=== PATIENT | female | born 1950 | race American Indian/Alaskan Native ===

== ENCOUNTER 2017-07-27 16:39 | Observation (INO) | payer MEDICARE, MEDICAID ==
--- NOTE | 2017-07-27 16:57 | EDM.PDOCBH ---
ED HPI GENERAL MEDICAL PROBLEM - General Chief Complaint: Neurological Problem Stated Complaint: MEDICAL Time Seen by Provider: 07/27/17 16:55 Source of Information: Reports: Patient History Limitations: Reports: No Limitations, Other (pt is alert nd able to give a good history by the time she arrived. ) - History of Present Illness Onset: Gradual Duration: Day(s): Location: Reports: Chest - Related Data Allergies Allergy/AdvReac Type Severity Reaction Status Date / Time No Known Allergies Allergy Verified 07/27/17 16:46 Home Meds: Home Meds Aspirin 07/27/17 [History] Calcium Carb/Vitamin D3/Vit K2 [Calcium Plus Menaq7 Adult Tab] 07/27/17 [ History] FLUoxetine [PROzac] 07/27/17 [History] Ferrous Sulfate [Ferosul] 07/27/17 [History] Fludrocortisone [Florinef] 07/27/17 [History] Gabapentin [Neurontin] 07/27/17 [History] Insulin Detemir [Levemir] 07/27/17 [History] Insulin Regular, Human [NovoLIN R] 07/27/17 [History] Levothyroxine 07/27/17 [History] Lidocaine 5% [Lidoderm 5%] 07/27/17 [History] Magnesium Oxide [Magnesium] 07/27/17 [History] Methocarbamol 07/27/17 [History] Multivitamin [Multi-Vitamin Daily] 07/27/17 [History] Potassium Chloride 07/27/17 [History] Vitamin D3/Vitamin K2 [D3 + K2 Dots 1,000 Unit] 07/27/17 [History] prednisoLONE [Millipred] 07/27/17 [History] Past Medical History Neurological History: Reports: Seizure Endocrine/Metabolic History: Reports: Diabetes, Type II - Past Surgical History GI Surgical History: Reports: Cholecystectomy Female Surgical History: Reports: Oophorectomy ED ROS GENERAL - Review of Systems Review Of Systems: See Below Constitutional: Reports: No Symptoms HEENT: Reports: No Symptoms Respiratory: Reports: No Symptoms Cardiovascular: Reports: No Symptoms Endocrine: Reports: No Symptoms GI/Abdominal: Reports: No Symptoms : Reports: No Symptoms Musculoskeletal: Reports: No Symptoms Skin: Reports: No Symptoms Neurological: Reports: Other (pt hd a very extended seizure. ) Psychiatric: Reports: Anxiety Immunologic: Reports: No Symptoms ED EXAM, BEHAVIORAL HEALTH - Physical Exam Exam: See Below Text/Narrative:: pt is alert and able to give a ood history. She had a bs of 40 earlier nd she had a seizure. There is some concern that she may be one that leaves the assisted living and could get into some drugs. Exam Limited By: No Limitations General Appearance: Alert, No Apparent Distress, Other (pupils are equal and reactive. ) Ears: Normal TMs Nose: Normal Inspection Throat/Mouth: Normal Inspection Head: Atraumatic Neck: Normal Inspection Respiratory/Chest: No Respiratory Distress Cardiovascular: Regular Rate, Rhythm GI/Abdominal: Soft, Non-Tender (Female) Exam: Deferred Rectal (Female) Exam: Deferred Back Exam: Normal Inspection Extremities: Normal Inspection Neurological: Alert, Normal Cognition, Oriented x 3 Psychiatric: Alert COURSE, BEHAVIORAL HEALTH COMP - Course Vital Signs: Last Vital Signs Temp 34.7 C L 07/27/17 16:58 Pulse 83 07/27/17 16:58 Resp 11 L 07/27/17 16:58 BP 105/63 07/27/17 16:58 Pulse Ox 96 07/27/17 16:58 Orders, Labs, Meds: Active Orders 24 hr Category Date Time Status Head wo Cont [CT] Stat Exams 07/27/17 18:04 Ordered DRUG SCREEN, URINE [URCHEM] Stat Lab 07/27/17 16:54 Ordered GLUCOSE POC LAB TO COLLECT [POC] Stat Lab 07/27/17 17:47 Ordered UA W/MICROSCOPIC [URIN] Urgent Lab 07/27/17 16:47 Ordered Dextrose 5%-0.45% NaCl [Dextrose 5%-1/2 NS] 1,000 ml Med 07/27/17 18:00 Ordered IV ASDIRECTED Sodium Chloride 0.9% [Normal Saline] 1,000 ml Med 07/27/17 17:00 Active IV ASDIRECTED Medication Orders Sodium Chloride (Normal Saline) 1,000 mls @ 500 mls/hr IV ASDIRECTED [facility] Dextrose/Sodium Chloride (Dextrose 5%-1/2 Ns) 1,000 mls @ 200 mls/hr IV ASDIRECTED [facility] Laboratory Tests 07/27/17 07/27/17 Range/Units 17:00 17:00 WBC 5.9 (4.5-11.0) K/uL RBC 4.25 (3.30-5.50) M/uL Hgb 12.4 (12.0-15.0) g/dL Hct 36.0 (36.0-48.0) % MCV 85 (80-98) fL MCH 29 (27-31) pg MCHC 34 (32-36) % Plt Count 241 (150-400) K/uL Neut % (Auto) 58 (36-66) % Lymph % (Auto) 26 (24-44) % Clark % (Auto) 13 H (2-6) % Eos % (Auto) 2 (2-4) % Baso % (Auto) 0 (0-1) % Sodium 140 (140-148) mmol/L Potassium 3.5 L (3.6-5.2) mmol/L Chloride 101 (100-108) mmol/L Carbon Dioxide 29 (21-32) mmol/L Anion Gap 13.5 (5.0-14.0) mmol/L BUN 13 (7-18) mg/dL Creatinine 0.6 (0.6-1.0) mg/dL Est Cr Clr Drug Dosing 72.29 mL/min Estimated GFR (MDRD) > 60 (>60) Glucose 86 (74-106) mg/dL Calcium 8.6 (8.5-10.1) mg/dL Total Bilirubin 0.2 (0.2-1.0) mg/dL AST 65 H (15-37) U/L ALT 83 H (12-78) U/L Alkaline Phosphatase 78 (46-116) U/L Total Protein 6.4 (6.4-8.2) g/dL Albumin 3.1 L (3.4-5.0) g/dL Globulin 3.3 (2.3-3.5) g/dL Albumin/Globulin Ratio 0.9 L (1.2-2.2) Medications Generic Name Dose Route Start Last Admin Trade Name Freq PRN Reason Stop Dose Admin Sodium Chloride 1,000 mls @ 500 mls/hr 07/27/17 17:00 Normal Saline IV ASDIRECTED AMY Dextrose/Sodium Chloride 1,000 mls @ 200 mls/hr 07/27/17 18:00 Dextrose 5%-1/2 Ns IV ASDIRECTED AMY Medical Clearance: 07/27/17 18:01 bs dropped again to 60. She is having supper. Will start d5/1/2 normal. 07/27/17 18:05 pt was put on tramodol about 4-5 days ago and could have lowered seizure threshold. Departure - Departure Time of Disposition: 18:06 Disposition: Admitted As Inpatient 68 Condition: Fair Clinical Impression: Hypoglycemia, Diabetes, Dehydration, Seizure - Discharge Information Referrals: Hilaria Denis MD [Primary Care Provider] - Forms: ED Department Discharge Care Plan Goals: admit to [facility] - My Orders Last 24 Hours: My Active Orders 07/27/17 16:47 UA W/MICROSCOPIC [URIN] Urgent 07/27/17 16:54 DRUG SCREEN, URINE [URCHEM] Stat 07/27/17 17:00 Sodium Chloride 0.9% [Normal Saline] 1,000 ml IV ASDIRECTED 07/27/17 17:47 GLUCOSE POC LAB TO COLLECT [POC] Stat 07/27/17 18:00 Dextrose 5%-0.45% NaCl [Dextrose 5%-1/2 NS] 1,000 ml IV ASDIRECTED 07/27/17 18:04 Head wo Cont [CT] Stat - Assessment/Plan Last 24 Hours: My Active Orders 07/27/17 16:47 UA W/MICROSCOPIC [URIN] Urgent 07/27/17 16:54 DRUG SCREEN, URINE [URCHEM] Stat 07/27/17 17:00 Sodium Chloride 0.9% [Normal Saline] 1,000 ml IV ASDIRECTED 07/27/17 17:47 GLUCOSE POC LAB TO COLLECT [POC] Stat 07/27/17 18:00 Dextrose 5%-0.45% NaCl [Dextrose 5%-1/2 NS] 1,000 ml IV ASDIRECTED 07/27/17 18:04 Head wo Cont [CT] Stat
[2017-07-27] MEDS ORDERED: Sodium Chloride 0.9% 1,000 ML IV SCH (17:00)
[2017-07-27] MEDS ORDERED: Dextrose 5%-0.45% NaCl 1,000 ML IV SCH (18:00)
[2017-07-27] MEDS ORDERED: Ondansetron 4 MG Tab.DIS PO PRN (19:48)
[2017-07-27] MEDS ORDERED: Ondansetron 4 MG/2 ML SDV IV PRN (19:48)
[2017-07-27] MEDS ORDERED: LORazepam 2 MG/ML MDV IV PRN (19:48)
[2017-07-27] MEDS ORDERED: Docusate Sodium 100 MG Cap PO PRN (19:48)
[2017-07-27] MEDS ORDERED: Morphine 2 MG/ML Syringe IVPUSH PRN (19:48)
[2017-07-27] MEDS ORDERED: Albuterol 0.083% 2.5 MG/3 ML Neb Soln NEB PRN (19:48)
[2017-07-27] MEDS: Potassium Chloride 20 MEQ Tab.ER PO SCH (20:49)
[2017-07-27] MEDS: Gabapentin 400 MG Cap PO SCH (20:49)
[2017-07-27] MEDS: Acetaminophen 325 MG Tab PO PRN (20:49)
[2017-07-27] MEDS: oxyCODONE 5 MG Tab PO PRN (20:50)
[2017-07-27] MEDS: Zolpidem 5 MG Tab PO PRN (20:50)
[2017-07-27] MEDS ORDERED: Insulin Detemir 100 Units/ML 3 ML Pen SUBCUT SCH (21:00)
[2017-07-27] MEDS: Methocarbamol 500 MG Tab PO SCH (21:05)
[2017-07-27] MEDS: Insulin Aspart 100 Units/ML 3 ML Pen SUBCUT SCH (22:24)
[2017-07-27] MEDS: Sodium Chloride 0.9% 1,000 ML IV SCH (23:32)
--- NOTE | 2017-07-28 00:22 | PCM.HP ---
H&P History of Present Illness - General Date of Service: 07/27/17 Admit Problem/Dx: Admission Diagnosis/Problem Admission Diagnosis/Problem Hypoglycemia associated with type 2 diabetes mellitus Source of Information: Patient, EMS Notes Reviewed, Provider History Limitations: Reports: No Limitations - History of Present Illness Initial Comments - Free Text/Narative: Hypoglycemia: This is a 67-year-old female presents emergency room via EMS from her assisted living home. [facility] staff report Donna as having a seizure lasting 15 minutes. Blood sugar was taken and noted to be at 40. EMS arrived, administered D50 and IV fluids were established. She was evaluated in the ER again had lower blood sugars in the 60s given food IV fluids. Now blood sugar in the 80s. Due to seizures and low blood sugars. Will admit overnight for observation. Patient is in agreement with plan of care. Recent start of tramadol 50 mg every 4-6 hours for the past 6 days. Onset of Symptoms: Reports: Sudden Duration of Symptoms: Reports: Hour(s): Location: Reports: Generalized Quality: Reports: Other (She seizure lasting 15 minutes. Witnessed.) Severity: Moderate Improves with: Reports: Other (Blood sugar at 40. Given D50 and IV fluids started) Worsens with: Reports: None Context: Reports: Other (Recent start of tramadol for pain.) Associated Symptoms: Reports: Seizure, Weakness - Related Data Allergies/Adverse Reactions: Allergies Allergy/AdvReac Type Severity Reaction Status Date / Time No Known Allergies Allergy Verified 07/27/17 16:46 Home Medications: Home Meds Aspirin 1 tab PO DAILY 07/27/17 [History] Calcium Carb/Vitamin D3/Vit K2 [Calcium Plus Menaq7 Adult Tab] 1 tab PO BID 09/10 [History] FLUoxetine [PROzac] 1 tab PO DAILY 07/27/17 [History] Ferrous Sulfate [Ferosul] 1 tab PO DAILY 07/27/17 [History] Fludrocortisone [Florinef] 2 tab PO DAILY 07/27/17 [History] Gabapentin [Neurontin] 2 tab PO TID 07/27/17 [History] Insulin Aspart [Novolog Flexpen] 25 units SQ TID 07/27/17 [History] Insulin Detemir [Levemir] 34 unit SQ BID 07/27/17 [History] Levothyroxine 1 tab PO DAILY 07/27/17 [History] Magnesium Oxide [Magnesium] 1 tab PO DAILY 07/27/17 [History] Methocarbamol 1 tab PO QID 07/27/17 [History] Multivitamin [Multi-Vitamin Daily] 1 tab PO DAILY 07/27/17 [History] Potassium Chloride 1 tab PO DAILY 07/27/17 [History] Vitamin D3/Vitamin K2 [D3 + K2 Dots 1,000 Unit] 1,000 units PO DAILY 07/27/17 [ History] prednisoLONE [Millipred] 1.5 tab PO DAILY 07/27/17 [History] Past Medical History HEENT History: Reports: Impaired Vision Respiratory History: Reports: Intubation, Previous, Pneumonia, Recurrent, SOB Gastrointestinal History: Reports: Hepatitis Other Gastrointestinal History: Hepatitis c in 1973 Genitourinary History: Reports: Diabetic Nephropathy, Urinary Incontinence 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 pt reports skin sensitivity - Infectious Disease History Infectious Disease History: Reports: Hepatitis C, MRSA - Past Surgical History HEENT Surgical History: Reports: LASIK Respiratory Surgical History: Reports: None GI Surgical History: Reports: Cholecystectomy, Colonoscopy Female Surgical History: Reports: Oophorectomy Endocrine Surgical History: Reports: None Neurological Surgical History: Reports: None Musculoskeletal Surgical History: Reports: None Dermatological Surgical History: Reports: None Social & Family History - Tobacco Use Smoking Status *Q: Never Smoker Second Hand Smoke Exposure: Yes - Caffeine Use Caffeine Use: Reports: Coffee, Soda Caffeine Use Comment: 2-3 cups/daily - Recreational Drug Use Recreational Drug Use: No - Living Situation & Occupation Living situation: Reports: Single Occupation: Disabled (Has been living at [place], [place]. For the past 3 months. Prior to that lived with son, Karlos Delarosa in [place], [place].) H&P Review of Systems - Review of Systems: Review Of Systems: Unable To Obtain General: Reports: Weakness HEENT: Reports: No Symptoms Pulmonary: Reports: No Symptoms Cardiovascular: Reports: No Symptoms Gastrointestinal: Reports: No Symptoms Genitourinary: Reports: No Symptoms Musculoskeletal: Reports: No Symptoms Skin: Reports: No Symptoms Psychiatric: Reports: No Symptoms Neurological: Reports: Other (Witnessed seizure at the assisted living home. None since being in the emergency room) Hematologic/Lymphatic: Reports: No Symptoms Immunologic: Reports: No Symptoms Exam - Exam Exam: See Below - Vital Signs Vital Signs: Last Vital Signs Temp 34.7 C L 07/27/17 16:58 Pulse 83 07/27/17 18:55 Resp 12 07/27/17 18:55 BP 139/92 H 07/27/17 18:55 Pulse Ox 100 07/27/17 20:20 Weight: 50.303 kg - Exam General: Alert, Oriented, Cooperative, Other (Thin, appears older than stated age) HEENT: PERRLA, Hearing Intact, Mucosa Moist & [place], Nares Patent, Normal Nasal Septum, Posterior Pharynx Clear, Conjunctiva Clear, EOMI, EACs Clear, TMs Clear Neck: Supple, Trachea Midline, 2 Lungs: Clear to Auscultation, Normal Respiratory Effort Cardiovascular: Regular Rate, Regular Rhythm GI/Abdominal Exam: Normal Bowel Sounds, Soft, Non-Tender, No Organomegaly, No Distention, No Abnormal Bruit, No Mass, Pelvis Stable (Female) Exam: Deferred Rectal (Female) Exam: Deferred Back Exam: Normal Inspection Extremities: Normal Inspection, Normal Range of Motion, Non-Tender, No Pedal Edema, Normal Capillary Refill Skin: Warm, Dry, Intact Neurological: Cranial Nerves Intact, Reflexes Equal Bilateral, Strength Equal Bilateral, Normal Speech, Normal Tone Neuro Extensive - Mental Status: Alert, Oriented x3, Normal Mood/Affect, Normal Cognition Neuro Extensive - Motor, Sensory, Reflexes: CN II-XII Intact, Normal Reflexes Psychiatric: Alert, Normal Affect, Normal Mood - Patient Data Result Diagrams: 07/27/17 17:00 07/27/17 17:00 *Q Meaningful Use (ADM) - VTE *Q VTE Criteria *Q: - Stroke *Q Stroke Criteria *Q: - AMI *Q AMI Criteria *Q: - Problem List (1) Hypoglycemia SNOMED Code(s): 086406416 ICD Code: E16.2 - HYPOGLYCEMIA, UNSPECIFIED Status: Acute Priority: Medium Current Visit: Yes (2) Seizure SNOMED Code(s): 45784182 ICD Code: R56.9 - UNSPECIFIED CONVULSIONS Status: Acute Priority: Medium Current Visit: Yes (3) Diabetes SNOMED Code(s): 50732187 ICD Code: E11.9 - TYPE 2 DIABETES MELLITUS WITHOUT COMPLICATIONS Status: Acute Current Visit: Yes Qualifiers: Diabetes mellitus type: type 2 Diabetes mellitus complication status: with hypoglycemia Diabetes mellitus complication detail: without coma Diabetes mellitus roasterman insulin use: with roasterman use Qualified Code(s): E11.649 - Type 2 diabetes mellitus with hypoglycemia without coma; Z79.4 - roasterman ( current) use of insulin; Z79.4 - roasterman (current) use of insulin; Z79.4 - custodial (current) use of insulin; Z79.4 - roasterman (current) use of insulin Problem List Initiated/Reviewed/Updated: Yes Orders Last 24hrs: Active Orders 24 hr Category Date Time Status Patient Status [ADT] Routine ADT 07/27/17 19:48 Active Diabetes Education [RC] Click to Edit Care 07/27/17 19:48 Active Intake and Output [RC] QSHIFT Care 07/27/17 19:48 Active Neuro Check [RC] Q4HR Care 07/27/17 19:48 Active Notify Provider Vital Signs [RC] ASDIRECTED Care 07/27/17 19:48 Active Oxygen Therapy [RC] PRN Care 07/27/17 19:48 Active Pulse Oximetry [RC] PRN Care 07/27/17 19:48 Active RT Aerosol Therapy [RC] ASDIRECTED Care 07/27/17 19:48 Active Up With Assistance [RC] ASDIRECTED Care 07/27/17 19:48 Active VTE/DVT Education [RC] Per Unit Routine Care 07/27/17 19:48 Active Vital Signs [RC] Q4H Care 07/27/17 19:48 Active Consistent Carbohydrate Diet [DIET] Diet 07/27/17 Dinner Active BASIC METABOLIC PANEL,BMP [CHEM] AM Lab 07/28/17 05:11 Ordered CBC WITH AUTO DIFF [HEME] AM Lab 07/28/17 05:11 Ordered Acetaminophen [Tylenol] Med 07/27/17 19:48 Active 650 mg PO Q4H PRN Albuterol [Proventil Neb Soln] Med 07/27/17 19:48 Active 2.5 mg NEB Q4H PRN Docusate Sodium [Colace] Med 07/27/17 19:48 Active 100 mg PO BID PRN FLUoxetine [PROzac] Med 07/28/17 09:00 Active 40 mg PO DAILY Fludrocortisone [Florinef] Med 07/28/17 09:00 Active 0.2 mg PO DAILY Gabapentin [Neurontin] Med 07/27/17 21:00 Active 800 mg PO TID Insulin Aspart [NovoLOG] Med 07/27/17 22:00 Active See Protocol SUBCUT QIDACANDBED Insulin Detemir [Levemir] Med 07/27/17 21:00 Active 34 unit SUBCUT BID LORazepam [Ativan] Med 07/27/17 19:48 Active 1 mg IV Q6H PRN Levothyroxine Med 07/28/17 09:00 Active 25 mcg PO DAILY Magnesium Oxide Med 07/28/17 09:00 Active 400 mg PO DAILY Methocarbamol [Robaxin] Med 07/27/17 22:00 Active 500 mg PO QID Morphine Med 07/27/17 19:48 Active 2 mg IVPUSH Q2H PRN Ondansetron [Zofran ODT] Med 07/27/17 19:48 Active 4 mg PO Q6H PRN Ondansetron [Zofran] Med 07/27/17 19:48 Active 4 mg IV Q4H PRN Potassium Chloride [Klor-Con M20] Med 07/27/17 19:48 Active 20 meq PO DAILY Sodium Chloride 0.9% [Normal Saline] 1,000 ml Med 07/27/17 19:48 Active IV ASDIRECTED Zolpidem [Ambien] Med 07/27/17 19:48 Active 5 mg PO BEDTIME PRN oxyCODONE Med 07/27/17 19:48 Active 5 mg PO Q4H PRN predniSONE Med 07/28/17 09:00 Active 7.5 mg PO DAILY Seizure Precautions [OM.PC] Routine Oth 07/27/17 19:48 Ordered Sequential Compression Device [OM.PC] Per Unit Routine Oth 07/27/17 19:48 Ordered Resuscitation Status Routine Resus Stat 07/27/17 19:06 Ordered Medication Orders Acetaminophen (Tylenol) 650 mg PO Q4H PRN PRN Reason: Pain (Mild 1-3)/fever Last Admin: 07/27/17 20:49 Dose: 650 mg Albuterol (Proventil Neb Soln) 2.5 mg NEB Q4H PRN PRN Reason: Shortness Of Breath/wheezing Docusate Sodium (Colace) 100 mg PO BID PRN PRN Reason: Constipation Fludrocortisone Acetate (Florinef) 0.2 mg PO DAILY [facility] Fluoxetine HCl (Prozac) 40 mg PO DAILY [facility] Gabapentin (Neurontin) 800 mg PO TID [facility] Last Admin: 07/27/17 20:49 Dose: 800 mg Dextrose/Sodium Chloride (Dextrose 5%-1/2 Ns) 1,000 mls @ 200 mls/hr IV ASDIRECTED [facility] Last Admin: 07/27/17 18:14 Dose: 200 mls/hr Sodium Chloride (Normal Saline) 1,000 mls @ 125 mls/hr IV ASDIRECTED [facility] Last Admin: 07/27/17 23:32 Dose: 125 mls/hr Insulin Aspart (Novolog) 0 unit SUBCUT QIDACANDBED [facility] PRN Reason: Protocol Last Admin: 07/27/17 22:24 Dose: 4 units Insulin Detemir (Levemir) 34 unit SUBCUT BID [facility] Last Admin: 07/27/17 22:23 Dose: 34 unit Levothyroxine Sodium (Levothyroxine) 25 mcg PO DAILY [facility] Lorazepam (Ativan) 1 mg IV Q6H PRN PRN Reason: Nausea/Vomiting Magnesium Oxide (Magnesium Oxide) 400 mg PO DAILY [facility] Methocarbamol (Robaxin) 500 mg PO QID [facility] Last Admin: 07/27/17 21:05 Dose: 500 mg Morphine Sulfate (Morphine) 2 mg IVPUSH Q2H PRN PRN Reason: Pain (severe 7-10) Last Admin: 07/27/17 20:20 Dose: 2 mg Ondansetron HCl (Zofran Odt) 4 mg PO Q6H PRN PRN Reason: Nausea able to take PO Ondansetron HCl (Zofran) 4 mg IV Q4H PRN PRN Reason: Nausea/Vomiting Oxycodone HCl (Oxycodone) 5 mg PO Q4H PRN PRN Reason: Pain (moderate 4-6) Last Admin: 07/27/17 20:50 Dose: 5 mg Potassium Chloride (Klor-Con M20) 20 meq PO DAILY [facility] Last Admin: 07/27/17 20:49 Dose: 20 meq Prednisone (Prednisone) 7.5 mg PO DAILY [facility] Zolpidem Tartrate (Ambien) 5 mg PO BEDTIME PRN PRN Reason: Sleep Last Admin: 07/27/17 20:50 Dose: 5 mg Assessment/Plan Comment:: ASSESSMENT / PLAN -This is a 67 year old female present to ER via EMS for seizure due to low blood sugar at the assisted living home. She had a complete workup in the emergency room which did not show any acute disease process. Negative drug screen except for benzos, which she is has a prescription for, head CT negative. She was given IV fluids while in the emergency room. Due to the new onset of seizure activity. Will monitor overnight. Plan Diabetes type 2 with hypoglycemia -Admit to [address] [place] [address] for further monitoring -Neuro checks every 4 hours -Seizures precautions -IV fluids for rehydration NS at 125 mL per hour -Advise to notify nurses of any chest pain or other symptoms -Blood glucose 4 times daily -Low dose sliding scale insulin coverage -Insulin, Levemir 34 units at at bedtime -Do not give tramadol -And a.m. labs: CBC, BMP, cholesterol panel, amylase and lipase Maintenance issues -Orders home meds: -Nutrition: Consistent carb diet -[place] catheter not indicated at this time -DVT: , Lovenox 30 mg subcut -GI Prophalaxis; Protonix 40mg daily CODE STATUS: Full Admission status: Admit to Observation -I expect this patient to stay less than 24 hours, not to exceed 96 hours for evaluation and management of this problem. Disposition: [facility] – [place] [place], [place]. Primary care provider: Dr. Worthington Hospitalist: Dr. Mcbride
[2017-07-28] MEDS: Acetaminophen 325 MG Tab PO PRN (05:37)
[2017-07-28] MEDS: oxyCODONE 5 MG Tab PO PRN ×4 (05:37→21:01)
[2017-07-28] MEDS: Methocarbamol 500 MG Tab PO SCH ×4 (05:48→21:02)
[2017-07-28] MEDS: Sodium Chloride 0.9% 1,000 ML IV SCH (06:49)
[2017-07-28] MEDS: Insulin Aspart 100 Units/ML 3 ML Pen SUBCUT SCH ×4 (07:24→20:59)
[2017-07-28] MEDS ORDERED: Levothyroxine 25 MCG Tab PO SCH (09:00)
[2017-07-28] MEDS: Levothyroxine 25 MCG Tab PO SCH (09:53)
[2017-07-28] MEDS: Magnesium Oxide 400 MG Tab PO SCH (09:55)
[2017-07-28] MEDS: Potassium Chloride 20 MEQ Tab.ER PO SCH (09:55)
[2017-07-28] MEDS: Fludrocortisone 0.1 MG Tab PO SCH (09:55)
[2017-07-28] MEDS: predniSONE 5 MG Tab PO SCH (09:56)
[2017-07-28] MEDS: Gabapentin 400 MG Cap PO SCH ×3 (09:56→21:01)
[2017-07-28] MEDS: FLUoxetine 20 MG Cap PO SCH (09:57)
[2017-07-28] MEDS: Insulin Detemir 100 Units/ML 3 ML Pen SUBCUT SCH ×2 (09:58→20:58)
--- NOTE | 2017-07-28 14:08 | PCM.PN ---
- General Info Date of Service: 07/28/17 Subjective Update: This patient is a 67-year-old woman who was admitted through the emergency department to observation status last night after she experienced a seizure at her assisted living facility. She has a past history of seizures, possible contributing factors felt to be hypoglycemia and tramadol. There's been no seizure activity since admission but she has had some ongoing difficulty with hypoglycemia. Does have underlying diabetes mellitus and takes insulins daily. - Review of Systems General: Denies: Fever, Weakness, Chills Pulmonary: Reports: No Symptoms Cardiovascular: Reports: No Symptoms Gastrointestinal: Reports: No Symptoms Neurological: Reports: No Symptoms - Patient Data Vitals - Most Recent: Last Vital Signs Temp 99.0 F 07/28/17 10:53 Pulse 88 07/28/17 10:53 Resp 18 07/28/17 10:53 BP 114/72 07/28/17 10:53 Pulse Ox 94 L 07/28/17 13:41 Weight - Most Recent: 114 lb 3.2 oz I&O - Last 24 Hours: Intake & Output 07/27/17 07/28/17 07/28/17 22:59 06:59 14:59 Intake Total 1822 460 Output Total 500 Balance 1822 -40 Lab Results Last 24 Hours: Laboratory Results - last 24 hr 07/28/17 07/28/17 Range/Units 05:59 05:59 WBC 6.6 (4.5-11.0) K/uL RBC 4.17 (3.30-5.50) M/uL Hgb 12.3 (12.0-15.0) g/dL Hct 35.4 L (36.0-48.0) % MCV 85 (80-98) fL MCH 30 (27-31) pg MCHC 35 (32-36) % Plt Count 243 (150-400) K/uL Neut % (Auto) 44 (36-66) % Lymph % (Auto) 43 (24-44) % Page % (Auto) 12 H (2-6) % Eos % (Auto) 2 (2-4) % Baso % (Auto) 0 (0-1) % Sodium 139 L (140-148) mmol/L Potassium 4.3 (3.6-5.2) mmol/L Chloride 104 (100-108) mmol/L Carbon Dioxide 27 (21-32) mmol/L Anion Gap 12.3 (5.0-14.0) mmol/L BUN 5 L D (7-18) mg/dL Creatinine 0.6 (0.6-1.0) mg/dL Est Cr Clr Drug Dosing 74.23 mL/min Estimated GFR (MDRD) > 60 (>60) Glucose 41 L* (74-106) mg/dL Calcium 8.6 (8.5-10.1) mg/dL Med Orders - Current: Current Medications Acetaminophen (Tylenol) 650 mg PO Q4H PRN PRN Reason: Pain (Mild 1-3)/fever Last Admin: 07/28/17 05:37 Dose: 650 mg Albuterol (Proventil Neb Soln) 2.5 mg NEB Q4H PRN PRN Reason: Shortness Of Breath/wheezing Docusate Sodium (Colace) 100 mg PO BID PRN PRN Reason: Constipation Fludrocortisone Acetate (Florinef) 0.2 mg PO DAILY [facility] Last Admin: 07/28/17 09:55 Dose: 0.2 mg Fluoxetine HCl (Prozac) 40 mg PO DAILY [facility] Last Admin: 07/28/17 09:57 Dose: 40 mg Gabapentin (Neurontin) 800 mg PO TID [facility] Last Admin: 07/28/17 13:18 Dose: 800 mg Insulin Aspart (Novolog) 0 unit SUBCUT QIDACANDBED [facility] PRN Reason: Protocol Last Admin: 07/28/17 13:13 Dose: 2 units Insulin Detemir (Levemir) 20 unit SUBCUT BID [facility] Last Admin: 07/28/17 09:58 Dose: 20 units Levothyroxine Sodium (Levothyroxine) 25 mcg PO ACBREAKFAST [facility] Last Admin: 07/28/17 09:53 Dose: 25 mcg Lorazepam (Ativan) 1 mg IV Q6H PRN PRN Reason: Nausea/Vomiting Magnesium Oxide (Magnesium Oxide) 400 mg PO DAILY [facility] Last Admin: 07/28/17 09:55 Dose: 400 mg Methocarbamol (Robaxin) 500 mg PO QID [facility] Last Admin: 07/28/17 10:03 Dose: 500 mg Morphine Sulfate (Morphine) 2 mg IVPUSH Q2H PRN PRN Reason: Pain (severe 7-10) Last Admin: 07/27/17 20:20 Dose: 2 mg Ondansetron HCl (Zofran Odt) 4 mg PO Q6H PRN PRN Reason: Nausea able to take PO Ondansetron HCl (Zofran) 4 mg IV Q4H PRN PRN Reason: Nausea/Vomiting Oxycodone HCl (Oxycodone) 5 mg PO Q4H PRN PRN Reason: Pain (moderate 4-6) Last Admin: 07/28/17 10:12 Dose: 5 mg Potassium Chloride (Klor-Con M20) 20 meq PO DAILY [facility] Last Admin: 07/28/17 09:55 Dose: 20 meq Prednisone (Prednisone) 7.5 mg PO DAILY [facility] Last Admin: 07/28/17 09:56 Dose: 7.5 mg Zolpidem Tartrate (Ambien) 5 mg PO BEDTIME PRN PRN Reason: Sleep Last Admin: 07/27/17 20:50 Dose: 5 mg Discontinued Medications Sodium Chloride (Normal Saline) 1,000 mls @ 500 mls/hr IV ASDIRECTED [facility] Dextrose/Sodium Chloride (Dextrose 5%-1/2 Ns) 1,000 mls @ 200 mls/hr IV ASDIRECTED [facility] Last Admin: 07/27/17 18:14 Dose: 200 mls/hr Sodium Chloride (Normal Saline) 1,000 mls @ 125 mls/hr IV ASDIRECTED [facility] Last Admin: 07/28/17 06:49 Dose: 125 mls/hr Insulin Detemir (Levemir) 34 unit SUBCUT BID [facility] Last Admin: 07/27/17 22:23 Dose: 34 unit - Exam Quality Assessment: DVT Prophylaxis General: Alert, Oriented, Cooperative, No Acute Distress Lungs: Clear to Auscultation, Normal Respiratory Effort Cardiovascular: Regular Rate, Regular Rhythm, No Murmurs GI/Abdominal Exam: Soft, Non-Tender, No Organomegaly, No Distention Extremities: Non-Tender, No Pedal Edema Skin: Warm, Dry, Intact - Problem List Review Problem List Initiated/Reviewed/Updated: Yes - My Orders Last 24 Hours: My Active Orders 07/28/17 09:00 Insulin Detemir [Levemir] 20 unit SUBCUT BID 07/28/17 14:02 Convert IV to Saline Lock [OM.PC] Routine - Plan Plan:: ASSESSMENT / PLAN Generalized tonic-clonic seizure -Neuro checks every 4 hours -Seizures precautions -Discontinue tramadol Diabetes type 2 with hypoglycemia -Saline lock IV -Blood glucose 4 times daily -Low dose sliding scale insulin coverage -Decrease Levemir to 20 units morning and evening Maintenance issues -Nutrition: Consistent carb diet -[place] catheter not indicated at this time -DVT: , Lovenox 30 mg subcut -GI Prophalaxis; Protonix 40mg daily CODE STATUS: Full Admission status: Admit to Observation -I expect this patient to stay less than 24 hours, not to exceed 96 hours for evaluation and management of this problem. Disposition: [facility] [place], [place]. Primary care provider: Dr. Worthington Hospitalist: Dr. Yu
[2017-07-28] MEDS: Zolpidem 5 MG Tab PO PRN (21:00)
[2017-07-29] MEDS: Methocarbamol 500 MG Tab PO SCH ×2 (05:08→10:17)
[2017-07-29] MEDS: oxyCODONE 5 MG Tab PO PRN ×3 (05:09→14:07)
[2017-07-29] MEDS: Insulin Aspart 100 Units/ML 3 ML Pen SUBCUT SCH ×2 (07:52→13:14)
[2017-07-29] MEDS: Levothyroxine 25 MCG Tab PO SCH (07:54)
[2017-07-29] MEDS ORDERED: Insulin Detemir 100 Units/ML 3 ML Pen SUBCUT SCH ×2 (09:00→21:00)
[2017-07-29] MEDS: Magnesium Oxide 400 MG Tab PO SCH (10:11)
[2017-07-29] MEDS: Potassium Chloride 20 MEQ Tab.ER PO SCH (10:11)
[2017-07-29] MEDS: Gabapentin 400 MG Cap PO SCH ×2 (10:12→13:14)
[2017-07-29] MEDS: Fludrocortisone 0.1 MG Tab PO SCH (10:12)
[2017-07-29] MEDS: predniSONE 5 MG Tab PO SCH (10:15)
[2017-07-29] MEDS: FLUoxetine 20 MG Cap PO SCH (10:17)
--- NOTE | 2017-07-29 15:54 | PCM.DCSUM1 ---
Discharge Summary - Hospital Course Brief History: Ms. Vargas is a 67-year-old woman who was admitted through the emergency department following a seizure at her assisted living facility thought to be secondary to her underlying history of seizure disorder complicated by hypoglycemia. - Discharge Data Discharge Date: 07/29/17 Discharge Disposition: DC/[facility] to [facility] Condition: Fair - Discharge Diagnosis/Problem(s) (1) Hypoglycemia SNOMED Code(s): 454307380 ICD Code: E16.2 - HYPOGLYCEMIA, UNSPECIFIED Status: Acute Priority: Medium (2) Diabetes SNOMED Code(s): 51139955 ICD Code: E11.9 - TYPE 2 DIABETES MELLITUS WITHOUT COMPLICATIONS Status: Acute Qualifiers: Diabetes mellitus type: type 2 Diabetes mellitus complication status: with hypoglycemia Diabetes mellitus complication detail: without coma Diabetes mellitus laborer marine terminal insulin use: with detention use Qualified Code(s): E11.649 - Type 2 diabetes mellitus with hypoglycemia without coma; Z79.4 - remote computer terminal operator ( current) use of insulin; Z79.4 - remote computer terminal operator (current) use of insulin; Z79.4 - remote computer terminal operator (current) use of insulin; Z79.4 - nursing home (current) use of insulin (3) Dehydration SNOMED Code(s): 49624579 ICD Code: E86.0 - DEHYDRATION Status: Acute (4) Seizure SNOMED Code(s): 79682938 ICD Code: R56.9 - UNSPECIFIED CONVULSIONS Status: Acute Priority: Medium - Patient Summary/Data Hospital Course: This patient is a 67-year-old woman who resides at a assisted living facility. She has a known history of type 2 diabetes mellitus as well as seizure disorder. On the evening admission developed a generalized tonic-clonic seizure and was brought into the emergency department report via EMS. Blood sugar had been checked by EMS and found to be very low at 40. She was admitted to observation status for further monitoring of seizures and management of her insulins. She was given IV fluids for hydration and had no further seizure episodes during the hospitalization. Seizure precautions were put in place and neuro checks were monitored every 4 hours for the first 24 hours. She did have some ongoing difficulty with hypoglycemia and her dose of insulins was decreased during hospital stay and will be decreased at the time of discharge. Levemir insulins will be changed to 34 units in the morning and 20 units in the evening. NovoLog insulin will be changed to 18 units with each meal. Activity will be as tolerated and she will resume her usual diet. Follow-up appointment with her primary care provider will be scheduled within one week. - Patient Instructions Diet: Diabetic Diet Activity: As Tolerated Other/Special Instructions: Please schedule follow-up appointment with primary care provider within one week. - Discharge Plan Home Medications: Home Meds Aspirin 81 mg PO DAILY 07/27/17 [History] FLUoxetine [PROzac] 1 tab PO DAILY 07/27/17 [History] Ferrous Sulfate [Ferosul] 325 mg PO DAILY 07/27/17 [History] Fludrocortisone [Florinef] 0.2 mg PO DAILY 07/27/17 [History] Gabapentin [Neurontin] 800 mg PO TID 07/27/17 [History] Levothyroxine 25 mcg PO DAILY 07/27/17 [History] Magnesium Oxide [Magnesium] 400 mg PO DAILY 07/27/17 [History] Methocarbamol 500 mg PO QID 07/27/17 [History] Multivitamin [Multi-Vitamin Daily] 1 tab PO DAILY 07/27/17 [History] Potassium Chloride 20 meq PO DAILY 07/27/17 [History] prednisoLONE [Millipred] 15 mg PO DAILY 07/27/17 [History] Acetaminophen 650 mg PO Q4H PRN 07/28/17 [History] Albuterol [Ventolin HFA] 1 puff INH Q4H PRN 07/28/17 [History] Benzocaine/Menthol [Cepacol Sore Throat Lozenge] 1 each MM TID PRN 07/28/17 [ History] Calcium Carbonate/Vitamin D3 [Calcium 600-Vit D3 400 Tablet] 1 tab PO DAILY 10/10 [History] Cholecalciferol (Vitamin D3) [Vitamin D3] 1,000 units PO DAILY 07/28/17 [History ] ClonazePAM [KlonoPIN] 0.5 mg PO BEDTIME PRN 07/28/17 [History] Codeine/guaiFENesin [Robitussin AC] 10 ml PO Q6H PRN 07/28/17 [History] Cyanocobalamin (Vitamin B-12) [Vitamin B-12] 1,000 mcg PO DAILY 07/28/17 [ History] Ondansetron [Zofran] 8 mg PO Q8H PRN 07/28/17 [History] Insulin Aspart [Novolog Flexpen] 18 units SQ TID #0 07/29/17 [Rx] Insulin Detemir [Levemir] 20 unit SUBCUT BEDTIME #0 pen 07/29/17 [Rx] Insulin Detemir [Levemir] 30 unit SUBCUT DAILY pen 07/29/17 [Rx] Forms: ED Department Discharge Referrals: Hilaria Denis MD [Primary Care Provider] - 08/06/17 10:00 am - Discharge Summary/Plan Comment DC Time >30 min.: No - Patient Data Vitals - Most Recent: Last Vital Signs Temp 99.2 F 07/29/17 07:50 Pulse 96 07/29/17 13:20 Resp 16 07/29/17 13:20 BP 105/76 07/29/17 13:20 Pulse Ox 93 L 07/29/17 13:20 Weight - Most Recent: 112 lb I&O - Last 24 hours: Intake & Output 07/29/17 07/29/17 07/29/17 06:59 14:59 22:59 Intake Total 720 Balance 720 Med Orders - Current: Current Medications Discontinued Medications Acetaminophen (Tylenol) 650 mg PO Q4H PRN PRN Reason: Pain (Mild 1-3)/fever Last Admin: 07/28/17 05:37 Dose: 650 mg Albuterol (Proventil Neb Soln) 2.5 mg NEB Q4H PRN PRN Reason: Shortness Of Breath/wheezing Docusate Sodium (Colace) 100 mg PO BID PRN PRN Reason: Constipation Fludrocortisone Acetate (Florinef) 0.2 mg PO DAILY [facility] Last Admin: 07/29/17 10:12 Dose: 0.2 mg Fluoxetine HCl (Prozac) 40 mg PO DAILY [facility] Last Admin: 07/29/17 10:17 Dose: 40 mg Gabapentin (Neurontin) 800 mg PO TID [facility] Last Admin: 07/29/17 13:14 Dose: 800 mg Sodium Chloride (Normal Saline) 1,000 mls @ 500 mls/hr IV ASDIRECTED [facility] Dextrose/Sodium Chloride (Dextrose 5%-1/2 Ns) 1,000 mls @ 200 mls/hr IV ASDIRECTED [facility] Last Admin: 07/27/17 18:14 Dose: 200 mls/hr Sodium Chloride (Normal Saline) 1,000 mls @ 125 mls/hr IV ASDIRECTED [facility] Last Admin: 07/28/17 06:49 Dose: 125 mls/hr Insulin Aspart (Novolog) 0 unit SUBCUT QIDACANDBED [facility] PRN Reason: Protocol Last Admin: 07/29/17 13:14 Dose: 4 units Insulin Detemir (Levemir) 34 unit SUBCUT BID [facility] Last Admin: 07/27/17 22:23 Dose: 34 unit Insulin Detemir (Levemir) 20 unit SUBCUT BID [facility] Last Admin: 07/28/17 20:58 Dose: 20 units Insulin Detemir (Levemir) 30 unit SUBCUT DAILY [facility] Last Admin: 07/29/17 10:20 Dose: 30 units Insulin Detemir (Levemir) 20 unit SUBCUT BEDTIME [facility] Levothyroxine Sodium (Levothyroxine) 25 mcg PO ACBREAKFAST [facility] Last Admin: 07/29/17 07:54 Dose: 25 mcg Lorazepam (Ativan) 1 mg IV Q6H PRN PRN Reason: Nausea/Vomiting Last Admin: 07/28/17 18:32 Dose: 1 mg Magnesium Oxide (Magnesium Oxide) 400 mg PO DAILY [facility] Last Admin: 07/29/17 10:11 Dose: 400 mg Methocarbamol (Robaxin) 500 mg PO QID [facility] Last Admin: 07/29/17 10:17 Dose: 500 mg Morphine Sulfate (Morphine) 2 mg IVPUSH Q2H PRN PRN Reason: Pain (severe 7-10) Last Admin: 07/27/17 20:20 Dose: 2 mg Ondansetron HCl (Zofran Odt) 4 mg PO Q6H PRN PRN Reason: Nausea able to take PO Ondansetron HCl (Zofran) 4 mg IV Q4H PRN PRN Reason: Nausea/Vomiting Oxycodone HCl (Oxycodone) 5 mg PO Q4H PRN PRN Reason: Pain (moderate 4-6) Last Admin: 07/29/17 14:07 Dose: 5 mg Potassium Chloride (Klor-Con M20) 20 meq PO DAILY [facility] Last Admin: 07/29/17 10:11 Dose: 20 meq Prednisone (Prednisone) 7.5 mg PO DAILY [facility] Last Admin: 07/29/17 10:15 Dose: 7.5 mg Zolpidem Tartrate (Ambien) 5 mg PO BEDTIME PRN PRN Reason: Sleep Last Admin: 07/28/17 21:00 Dose: 5 mg - Exam General: Reports: Alert, Oriented, Cooperative, No Acute Distress Lungs: Reports: Clear to Auscultation, Normal Respiratory Effort Cardiovascular: Reports: Regular Rate, Regular Rhythm, No Murmurs GI/Abdominal Exam: Soft, Non-Tender, No Organomegaly, No Distention *Q Meaningful Use (DIS) - VTE *Q VTE Criteria *Q: - Stroke *Q Stroke Criteria *Q: - AMI *Q AMI Criteria *Q:
== END 2017-07-29 15:40 ==
LOC: JP.ED 16:39 → JP.MS 19:02
PROVIDERS: ADMIT Internal Medicine; ATTEND Internal Medicine
DX: E11.649 Type 2 diabetes mellitus with hypoglycemia without coma (principal); E86.0 Dehydration; R56.9 Unspecified convulsions; E11.21 Type 2 diabetes mellitus with diabetic nephropathy; F41.9 Anxiety disorder, unspecified; F32.9 Major depressive disorder, single episode, unspecified; Z79.82 Long term (current) use of aspirin; Z79.4 Long term (current) use of insulin; Z79.899 Other long term (current) drug therapy; Z90.49 Acquired absence of other specified parts of digestive tract
CPT/HCPCS: 36415; 70450; 80048; 80053; 80305; 81001; 82962; 85025; 94762; 96360; 96361; 99285; A9270; J2060; J2270; J7040; 99217; 99219; 99225